=== PATIENT | male | born 1950 | race Caucasian/White ===

== ENCOUNTER 2019-04-07 10:29 | Day surgery (SDC) | payer MEDICARE, OTHER ==
[~2019-04-07] VITALS: Ht 180.3 cm; Wt 95.5 kg
[~2019-04-07 10:29] MED LIST: ALLOPURINOL300 MG PO; GLUCOPHAGE500 MG/TAB PO; LIPITOR20 MG PO; NORCO 325 MG-51 TAB PO; TRICOR145 MG PO; ZOFRAN 4MG T4 MG/TAB PO; [UNRECOGNIZED DRUG - OTHER]
[2019-04-07] MEDS ORDERED: CRESTOR20 MG PO (11:29)
[2019-04-07] MEDS ORDERED: COZAAR100 MG PO (11:30)
[2019-04-07] MEDS ORDERED: FLOMAX 0.40.4 MG/CAP PO (11:31)
[2019-04-07 11:33] VITALS: BP 149/87; PULSE 80; TEMP 98.3
[2019-04-07] MEDS ORDERED: ASPIRIN 81M81 MG/TA2 PO (11:33)
[2019-04-07 13:00] VITALS: BP 97/57; PULSE 77; TEMP 97.9
--- NOTE | 2019-04-07 13:00 | NUR ---
Pt returned to room after procedure via cart with GARDENIA Pfeiffer. Received report from GARDENIA Sanchez. Pt's vitals stable and WNL. Pt denies pain or nausea. at chair side reviewing procedure results. Call light within reach. Pt called for greens picker. Pt has no further concerns/questions at this time.
[2019-04-07 13:15] VITALS: BP 126/91; PULSE 65
--- NOTE | 2019-04-07 13:15 | NUR ---
Pt sitting comfortably in chair. He finished OJ with no c/o nausea and denies pain at this time. VSS and WNL and call light within reach.
[2019-04-07 13:30] VITALS: BP 118/76; PULSE 62
--- NOTE | 2019-04-07 13:30 | NUR ---
Pt states that he is ready to go home, and he meets criteria for discharge. , Brie, with pt and Endo RN reviewing procedure results and plan of care with family. They have no further questions at this time, but know who to contact when questions/concerns arise. They both expressed understanding of the plan. pt's VSS and WNL at this time.
== END 2019-04-07 13:54 | disposition home or self-care (01) ==
LOC: SDCO 10:29
DX: Z12.11 Encounter for screening for malignant neoplasm of colon (principal); D12.0 Benign neoplasm of cecum; D12.3 Benign neoplasm of transverse colon; D12.5 Benign neoplasm of sigmoid colon; K63.89 Other specified diseases of intestine; I10 Essential (primary) hypertension; E78.5 Hyperlipidemia, unspecified; N40.0 Benign prostatic hyperplasia without lower urinary tract symptoms; M10.9 Gout, unspecified; E11.69 Type 2 diabetes mellitus with other specified complication; N52.9 Male erectile dysfunction, unspecified; E66.9 Obesity, unspecified; Z68.30 Body mass index [BMI] 30.0-30.9, adult; Z87.891 Personal history of nicotine dependence; Z79.84 Long term (current) use of oral hypoglycemic drugs; Z79.82 Long term (current) use of aspirin; Z82.49 Family history of ischemic heart disease and other diseases of the circulatory system; Z82.5 Family history of asthma and other chronic lower respiratory diseases; Z80.0 Family history of malignant neoplasm of digestive organs
CPT/HCPCS: J2704; J3010; J7120

== ENCOUNTER 2019-04-22 07:57 | Outpatient (CLI) | payer MEDICARE, OTHER ==
[~2019-04-22] VITALS: Ht 180.3 cm; Wt 97.7 kg
[2019-04-22] VITALS (16 sets, daily range): BP systolic 130–207; BP diastolic 58–109; PULSE 57–76
[~2019-04-22 07:57] MED LIST changes: +ASPIRIN 81M81 MG/TA2 PO; +COZAAR100 MG PO; +CRESTOR20 MG PO; +FLOMAX 0.40.4 MG/CAP PO
--- NOTE | 2019-04-22 09:20 | NUR ---
PT WAS TAKEN TO CT ROOM, PLACED ON TABLE AND MONITORING EQUIPMENT PLACED ON PT. IMAGES TAKEN AND SENT.
--- NOTE | 2019-04-22 09:45 | NUR ---
PT WAS GIVEN 0.5 MG VERSED AND 25 MCG FENTANYL
--- NOTE | 2019-04-22 10:01 | NUR ---
Pt to room 9 via cart,report from Celina mena.
--- NOTE | 2019-04-22 10:57 | NUR ---
PT WAS GIVEN 0.5 MG VERSED AND 25 MCG FENTANYL
--- NOTE | 2019-04-22 12:20 | NUR ---
Discharge instructions given to pt.pt verbalizes understanding.INT removed by Celina Castellanos.Pt escorted out via wheelchair by this nurse.
== END 2019-04-22 13:44 | disposition home or self-care (01) ==
LOC: COL.RAD 07:57
DX: R91.8 Other nonspecific abnormal finding of lung field (principal)

== ENCOUNTER 2019-06-03 08:07 | Inpatient (IN) | payer MEDICARE, OTHER ==
[~2019-06-03] VITALS: Ht 177.8 cm; Wt 95.2 kg
[2019-06-15] VITALS (13 sets, daily range): BP systolic 115–156; BP diastolic 66–90; PULSE 75–97; TEMP 97.5–97.9
[2019-06-15] MEDS ORDERED: ZYLOPRIM 300MG300 MG PO (12:15)
[2019-06-15 12:50] LABS: BASO # 0.1 (0.0-0.2); BASO % 1.1 % (0.0-2.0); EOS # 0.4 (0.0-0.7); EOS % 7.6 % (0-4.0); GRAN # 3.4 (1.4-6.5); GRAN % 64.5 % (42.2-75.2); HEMATOCRIT 39.7 % (42.0-52.0); HEMOGLOBIN 13.4 g/dl (13.5-18.0); LYMPH # 1.1 (1.2-3.4); LYMPH % 20.5 % (20.0-51.0); MEAN CELL VOLUME 83 fl (80.0-100.0); MEAN CORPUSCULAR HEMOGLOBIN 28 pg (27.0-31.0); MEAN CORPUSCULAR HGB CONC 34 g/dl (33.0-37.0); MEAN PLATELET VOLUME 12.2 fl (7.4-10.4); MONO # 0.3 (0.1-0.6); MONO % 5.9 % (1.7-9.3); PLATELET COUNT 60 K/mm3 (130-400); RED BLOOD COUNT 4.77 M/mm3 (4.20-5.60); REDCELL DISTRIBUTION WIDTH-CV 13.5 % (11.5-14.5)
[2019-06-15 13:00] LABS: ALBUMIN 4.7 gm/dL (3.5-5.0); CALCIUM 9.2 mg/dL (8.4-10.2); CREATININE, serum 1.26 (0.66-1.25); POTASSIUM 4.3 mmol/L (3.4-5.0); TOTAL PROTEIN 7.9 gm/dL (6.4-8.2)
--- NOTE | 2019-06-15 13:10 | NUR ---
Pt to PACU via cart for block placement. Toya FRONT OFFICE CLERK is aware of low platelet count. FRONT OFFICE CLERK visiting with pt. Side rails up x2.
[2019-06-15 13:42] LABS: PROTHROMBIN TIME 11.1 SECONDS (9.7-12.8)
[2019-06-15 13:45] LABS: PARTIAL THROMBOPLASTIN TIME 29.7 SECONDS (26.0-37.0)
--- NOTE | 2019-06-15 18:28 | NUR ---
Pt came back to the floor at 1730. Pt vitals were all within normal limits. Pt stated he had no pain at this time. Pt stated that he had to use the bathroom. Pt ambulated to the bathroom with stand by assistance. Pt did have a catheter in place during surgery , and feels he still has the urge to urinate. Pt is at bedside. Pt has no other complaints at this time. Was informed that he can have clear liquids at this time. Pt tolerated water well. Pt call light is within reach and bed is in lowest postion.
--- NOTE | 2019-06-15 18:45 | NUR ---
Pt currently sitting up in bed watching television. No complaints at this time. at bedside. Call light within reach and bed in lowest position
--- NOTE | 2019-06-15 20:43 | NUR ---
Ambulates with steady gait around surgical unit. Denies pain at this time. Voided 300cc of yellow urine. IV site to left forearm without redness or swelling, SL'd at this time.
--- NOTE | 2019-06-16 00:10 | NUR ---
PT AWAKENED FOR SCHEDULED ES TYLENOL. DENIES NEEDS AT THIS TIME. USES URINAL FOR 300CC OF YELLOW URINE.
[2019-06-16 04:10] VITALS: BP 150/80; PULSE 68; TEMP 98.4
[2019-06-16 05:45] LABS: BASO % 0.5 % (0.0-2.0); EOS # 0.4 (0.0-0.7); EOS % 6.5 % (0-4.0); GRAN # 4.4 (1.4-6.5); GRAN % 73.6 % (42.2-75.2); HEMOGLOBIN 11.8 g/dl (13.5-18.0); LYMPH # 0.7 (1.2-3.4); LYMPH % 12.2 % (20.0-51.0); MEAN CELL VOLUME 84 fl (80.0-100.0); MEAN CORPUSCULAR HEMOGLOBIN 28 pg (27.0-31.0); MEAN CORPUSCULAR HGB CONC 34 g/dl (33.0-37.0); MEAN PLATELET VOLUME 10.3 fl (7.4-10.4); MONO # 0.4 (0.1-0.6); MONO % 6.7 % (1.7-9.3); REDCELL DISTRIBUTION WIDTH-CV 13.5 % (11.5-14.5)
[2019-06-16 05:50] LABS: HEMATOCRIT 35.1 % (42.0-52.0); PLATELET COUNT 226 K/mm3 (130-400)
[2019-06-16 05:57] LABS: CALCIUM 8.8 mg/dL (8.4-10.2); CREATININE, serum 1.32 (0.66-1.25); MAGNESIUM 1.9 mg/dL (1.6-2.3); PHOSPHOROUS 4.4 mg/dL (2.5-4.5); POTASSIUM 3.9 mmol/L (3.4-5.0)
--- NOTE | 2019-06-16 06:06 | NUR ---
PATIENT AWAKE, VOIDING WELL. REPORTS NO FLATUS YET, AMBULATES IN HALLWAY AT THIS TIME.
[2019-06-16 07:56] VITALS: BP 157/79; PULSE 82; TEMP 97.3
--- NOTE | 2019-06-16 07:59 | NUR ---
Puncuture sites and incision site well approximated. No c/o pain at incision sites.
--- NOTE | 2019-06-16 09:17 | NUR ---
SW met with the patient to discuss discharge plan. The patient lives in [place] with his , Brie (ph#[phone]). He reports independence with ADLs and does not have any DME. The patient's PCP is Dr. Fernanda Archuleta and he receives his medications at [facility]. He reports no difficulties obtaining his meds. The patient does not have advanced directives in EMR, but he states that he does have them completed. He states that his is his DPOA-HC. The patient plans to return home with his upon discharge. No additional needs at this time.
--- NOTE | 2019-06-16 10:14 | NUR ---
Initial visit; Patient thanked Forensic Examiner for looking in on him and offering God's blessings.
[2019-06-16 12:11] VITALS: BP 144/77; PULSE 79; TEMP 97.5
--- NOTE | 2019-06-16 13:42 | NUR ---
Incision and puncture sites well approximated. [place] area to surrounding tissue. Open to air. Call light within reach, no further needs.
[2019-06-16 16:36] VITALS: BP 166/76; PULSE 70; TEMP 97.9
--- NOTE | 2019-06-16 18:34 | NUR ---
Pt had [facility] assisted living nursing director caring for him this morning and afternoon. Pt is A&O, independent in room, has been ambulating halls. Pt tolerating full liquid diet, no BM, passing gas, more so this morning and early afternoon, less this evening so far. Pt on room air, breathing even and unlabored. Pt has LFA INT iv that flushes w/o complications. No other concerns have been noted. Pt has 4 lap sites, edges well approximated, CDI, open to air.
[2019-06-16 20:00] VITALS: BP 127/66; PULSE 64; TEMP 98.2
--- NOTE | 2019-06-16 21:00 | NUR ---
PATIENT IN CHAIR AT BEDSIDE. REPORTS FEELING MORE "BLOATED" TONIGHT. IS PASSING LITTLE FLATUS. PAIN TO ABDOMEN MORE SIGNIFICANT TONIGHT, BUT REFUSES ANYTHING STRONGER THAN TYLENOL. SL TO LEFT FOREARM WITHOUT REDNESS OR SWELLING. IS WALKING HALLWAYS FREQUENTLY. POSITIVE REINFORCEMENT GIVEN. WILL MONITOR FOR CHANGES.
[2019-06-17 00:08] VITALS: BP 138/74; PULSE 70; TEMP 97.6
--- NOTE | 2019-06-17 01:00 | NUR ---
AMBULATING IN HALLWAYS WITH STEADY GAIT.
[2019-06-17 04:26] VITALS: BP 140/81; PULSE 79; TEMP 97.8
[2019-06-17 07:24] VITALS: BP 181/90; PULSE 89; TEMP 98.2
--- NOTE | 2019-06-17 07:27 | NUR ---
Blood pressure elevated, primary nurse Minerva notified.
--- NOTE | 2019-06-17 07:30 | NUR ---
Patient resting in bedside recliner at this time. Patient is alert and oriented, answers questions appropriately. Patient ambulates in the hallway independently and denies pain. Patient states that he is passing flatus and feels movement in his bowels, but has not actually had a bowel movement. Student nurse reports that patient's blood pressure is elevated, administered scheduled antihypertensive. Patient denies needs at this time, call light within reach.
[2019-06-17 08:08] VITALS: BP 145/74; PULSE 93
--- NOTE | 2019-06-17 08:10 | NUR ---
Blood pressure WNL at this time.
--- NOTE | 2019-06-17 11:34 | NUR ---
Discharge teaching completed. Discharge teaching completed, discussed time and date of follow up appointment, activity, diet, and showering instructions. INT removed, catheter intact, hemostasis achieved. Patient reported that all personal belongings were gathered. Patient escorted to ED entrance where he entered a private vehicle.
== END 2019-06-17 11:45 | disposition home or self-care (01) | DRG 331 ==
LOC: INPTSU 06-15 11:55 → SURG 06-15 13:30
PROVIDERS: Nurse Anesthetist, Certified Registered; ADMIT Surgery
PROC: 8E0W4CZ Robotic Assisted Procedure of Trunk Region, Percutaneous Endoscopic Approach (ICD-10-PCS; 2019-06-15)
PROC: 0DTF4ZZ Resection of Right Large Intestine, Percutaneous Endoscopic Approach (ICD-10-PCS; principal; 2019-06-15 13:30)
DX: D12.0 Benign neoplasm of cecum (principal); I10 Essential (primary) hypertension; N40.0 Benign prostatic hyperplasia without lower urinary tract symptoms; R73.03 Prediabetes
CPT/HCPCS: A4314; A9284; J0690; J1100; J1650; J1885; J2250; J2405; J2704; J2795; J3010; J7030; J7120

== ENCOUNTER → 2019-06-10 | Outpatient (CLI) | payer MEDICARE, OTHER ==
[2019-06-10 23:34] LABS: RHEUMATOID FACTOR-SCREEN <15 IU/mL (0-29)
== END ==
LOC: COL.LAB 11:20
PROVIDERS: Internal Medicine Pulmonary Disease
DX: R93.89 Abnormal findings on diagnostic imaging of other specified body structures (principal)

== ENCOUNTER → 2019-11-24 | Outpatient (CLI) | payer MEDICARE, OTHER ==
[~2019-11-24] MED LIST changes: +ZYLOPRIM 300MG300 MG PO
[2019-11-24 09:50] LABS: CALCIUM 9.5 mg/dL (8.4-10.2); CREATININE, serum 1.15 (0.66-1.25); POTASSIUM 4.9 mmol/L (3.4-5.0)
== END ==
LOC: COL.LAB 08:51
PROVIDERS: Internal Medicine Pulmonary Disease
DX: R93.89 Abnormal findings on diagnostic imaging of other specified body structures (principal)

== ENCOUNTER → 2020-05-29 | Outpatient (CLI) | payer MEDICARE, OTHER ==
[2020-05-29 10:15] LABS: CALCIUM 8.7 mg/dL (8.4-10.2); CREATININE, serum 1.39 (0.66-1.25); POTASSIUM 4.6 mmol/L (3.4-5.0)
== END ==
LOC: COL.LAB 09:43
PROVIDERS: Internal Medicine Pulmonary Disease
DX: R93.89 Abnormal findings on diagnostic imaging of other specified body structures (principal)